=== PATIENT | male | born 1970 | race Caucasian/White ===

== ENCOUNTER → 2019-12-25 09:22 | Emergency (ER) | payer SELFPAY ==
--- NOTE | 2019-12-25 09:22 | NUR ---
pt demanded to be carried from ems stretcher onto er's guerney. moving all extremities, full clear speech, oriented to name place time and event--- was instructed he had to move himself onto our guerney; pt started calling all of us "motherfuckers" i am just going to leave. pt ambulated out of the er with steady gait. at bedside
== END | disposition left against medical advice (07) ==
LOC: MED 09:22
DX: Z53.21 Procedure and treatment not carried out due to patient leaving prior to being seen by health care provider (principal)